=== PATIENT | female | born 1990 | race Caucasian/White ===

== ENCOUNTER 2019-05-18 12:18 | Emergency (ER) | payer OTHER ==
[~2019-05-18] VITALS: Ht 162.6 cm; Wt 67.4 kg
[2019-05-18 12:28] VITALS: BP 117/80
--- NOTE | 2019-05-18 12:29 | NUR ---
PT RETURNED TO LOBBY IN STABLE CONDITION
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
--- NOTE | 2019-05-18 12:37 | NUR ---
PT UNABLE TO VOID AT THIS TIME
--- NOTE | 2019-05-18 13:44 | NUR ---
DR SR AT BEDSIDE FOR PT EVALUATION
--- NOTE | 2019-05-18 14:00 | NUR ---
PT AAO X4. ACTING APPROPRIATELY. NO SIGNS AND SYMPTOMS OF DISTRESS NOTED.
[2019-05-18] MEDS ORDERED: LORazepam 1 MG TAB PO ONE (14:05)
[2019-05-18] MEDS ORDERED: diphenhydrAMINE 50 MG/ML VIAL IM ONE (14:05)
[2019-05-18] MEDS ORDERED: KETOROLAC 60 MG/2 ML VIAL IM ONE (14:05)
[2019-05-18 14:27] LABS: BARBITURATE, URINE NEG. ng/ml (NEG <=200); BENZODIAZEPINE, URINE NEG. ng/mL (NEG <=200); CANNABINOID, URINE POS. ng/mL (NEG <=50); COCAINE, URINE NEG. ng/mL (NEG <=300); OPIATE, URINE NEG. ng/mL (NEG <=2000); PHENCYCLIDINE SCREEN,URINE NEG. ng/mL (NEG <=25)
[2019-05-18 16:15] VITALS: BP 125/84
--- NOTE | 2019-05-18 16:15 | NUR ---
Patient discharged with v/s stable. Written and verbal after care instructions given and explained. Patient alert, oriented and verbalized understanding of instructions. Ambulatory with steady gait. All questions addressed prior to discharge. ID band removed. Patient advised to follow up with PMD. Rx of BACLOFEN given. Patient educated on indication of medication including possible reaction and side effects. Opportunity to ask questions provided and answered.
== END 2019-05-18 16:15 | disposition home or self-care (01) ==
LOC: MED 12:18
DX: S13.4XXA Sprain of ligaments of cervical spine, initial encounter (principal); F12.90 Cannabis use, unspecified, uncomplicated; X58.XXXA Exposure to other specified factors, initial encounter; Y93.89 Activity, other specified; Y92.89 Other specified places as the place of occurrence of the external cause; Y99.8 Other external cause status
CPT/HCPCS: 80305; 81025; 96372; 99283; J1200; J1885

== ENCOUNTER 2019-09-07 10:58 | Emergency (ER) | payer MEDICAID, OTHER ==
[~2019-09-07] VITALS: Ht 165.1 cm; Wt 66.7 kg
[2019-09-07 11:03] VITALS: BP 120/80
--- NOTE | 2019-09-07 11:13 | NUR ---
29/F C/O LEFT FRONTAL HEADACHE WITH N/V X 3 DAYS. DENIES INJURY OR TRAUMA. PT STATES SHE HAS HAD AN INCREASED STRESS LOAD; THIS FEELS LIKE HER TYPICAL MIGRAINE. DOES NOT TAKE ANY RX MED FOR MIGRAINE. +PHOTOPHOBIA AND +PHONOPHOBIA. ABLE TO KEEP DOWN SOME FLUIDS STILL. PT APPEARS IN NO TO MILD DISTRESS. INQUIRING ABOUT A LESION ON HER RT UPPER CHEST WELL. WANTS TO KNOW IF THERE IS SOME CREAM SHE CAN APPLY. PMH- CHRONIC MIGRAINES RX- BC POWDER
--- NOTE | 2019-09-07 11:22 | NUR ---
Dr. Gutiérrez is evaluating the patient at bedside.
[2019-09-07] MEDS ORDERED: diphenhydrAMINE 50 MG/ML VIAL IM ONE (11:35)
[2019-09-07] MEDS ORDERED: KETOROLAC 30 MG/ML VIAL IM ONE (11:35)
[2019-09-07] MEDS ORDERED: PROMETHAZINE 25 MG/ML VIAL IM ONE (11:35)
--- NOTE | 2019-09-07 12:27 | NUR ---
PT SLEEPING IN BED, RESPIRATION EVEN AND UNLABORED, FLACC 0 AT THIS TIME.
[2019-09-07 12:55] VITALS: BP 118/80
--- NOTE | 2019-09-07 12:56 | NUR ---
Patient discharged with v/s stable. Written and verbal after care instructions given and explained. Patient verbalized understanding. Ambulatory with steady gait. Work excuse provided for today and tomorrow. All questions addressed prior to discharge. Advised to follow up with PMD.
== END 2019-09-07 12:56 | disposition home or self-care (01) ==
LOC: MED 10:58
DX: G43.909 Migraine, unspecified, not intractable, without status migrainosus (principal)
CPT/HCPCS: 96372; 99283; J1200; J1885; J2550

== ENCOUNTER 2020-07-01 15:26 | Emergency (ER) | payer MEDICAID ==
[~2020-07-01] VITALS: Ht 162.6 cm; Wt 71.2 kg
[2020-07-01 15:29] VITALS: BP 129/59
--- NOTE | 2020-07-01 15:39 | NUR ---
30 Y/F PRESENTS TO ED FOR VAGINAL BLEEDING C CRAMPS, X 1 WEEK, FEELS LIKE "PILL ". PT REORTS LOW ABD PAIN 6/10 THAT RADIATES TO LOW BACK. DENIES ANY DYURIA. PT REPORTS SHE CHANGES PAD Q 2 HOURS, DARK BROWN DISCHARGE WITH TISSUE. ABD SOFT, REPORTS NAUSEA. PMH- OVARIAN CYSTS, NKDA RX- MYDOL
--- NOTE | 2020-07-01 16:44 | NUR ---
LAB AT BEDSIDE.
[2020-07-01 16:54] LABS: BASOPHILS # (AUTO) 0.1 K/uL (0.00-0.22); BASOPHILS % (AUTO) 0.8 % (0.0-2.0); EOSINOPHILS # (AUTO) 0.1 K/uL (0-0.4); EOSINOPHILS % (AUTO) 0.7 % (0.0-4.0); HEMATOCRIT 34.1 % (36-48); HEMOGLOBIN 11.1 g/dL (12.0-16.0); LYMPHOCYTES # (AUTO) 1.7 K/uL (2.5-16.5); LYMPHOCYTES % (AUTO) 23.6 % (20.5-51.1); MEAN CORPUSCULAR HEMOGLOBIN 28 pg (27-31); MEAN CORPUSCULAR HGB CONC 33 g/dL (33-37); MONOCYTES # (AUTO) 0.5 K/uL (0.8-1.0); MONOCYTES % (AUTO) 7.5 % (1.7-9.3); NEUTROPHILS # (AUTO) 4.9 K/uL (1.8-7.7); NEUTROPHILS % (AUTO) 67.4 % (42.2-75.2); PLATELET COUNT (AUTO) 291 K/uL (140-450); RED BLOOD CELL COUNT(AUTO) 3.92 MIL/uL (4.20-5.40); RED CELL DISTRIBUTION WIDTH 13.3 % (11.6-13.7); WHITE BLOOD COUNT (AUTO) 7.3 K/uL (4.8-10.8)
[2020-07-01 17:14] LABS: FREE T4 (FREE THYROXINE) 1.16 ng/dL (0.76-1.46); THYROID STIMULATING HORMONE 0.77 uIU/mL (0.34-3.74)
[2020-07-01 17:55] VITALS: BP 129/59
--- NOTE | 2020-07-01 17:56 | NUR ---
Patient discharged with v/s stable. Written and verbal after care instructions given and explained. Patient alert, oriented and verbalized understanding of instructions. Ambulatory with steady gait. All questions addressed prior to discharge. ID band removed. Patient advised to follow up with PMD. Rx of ZOFRAN AND TRAMADOL given. Patient educated on indication of medication including possible reaction and side effects. Opportunity to ask questions provided and answered.
== END 2020-07-01 17:55 | disposition home or self-care (01) ==
LOC: MED 15:26
DX: N93.9 Abnormal uterine and vaginal bleeding, unspecified (principal)
CPT/HCPCS: 36415; 76856; 81025; 84439; 84443; 85025; 99284; Q0092; 81002